=== PATIENT | male | born 1990 | race Caucasian/White ===

== ENCOUNTER 2019-01-08 19:05 | Emergency (ER) | payer OTHER, BC ==
--- NOTE | 2019-01-08 19:19 | ER Report ---
History and Physical Time Seen By MD: 19:19 Hx. of Stated Complaint: PT HIT STOOD UP AND HIT HEAD ON CABINET AT 1700 TODAY. NOT THINKING CLEARLY, HAS AN ABRASION ON TOP OF HEAD HPI/ROS CHIEF COMPLAINT: Head injury HISTORY OF PRESENT ILLNESS: This is a 28 year old male. he was at work, in the break room, stood up and hit head on corner of cabinet. Has been having dizziness. No headache. No loss of consciousness. Had nausea earlier, but is gone now. Has had prior concussion as a teenager. Is alert and oriented. Up to date on tetanus, last was in 2013 (5 years ago). Allergies: Coded Allergies: Sulfa (Sulfonamide Antibiotics) (Verified Allergy, Unknown, 01/08/19) Home Meds No Active Prescriptions or Reported Meds Reviewed Nurses Notes: Yes Hx Substance Use Disorder: No Hx Alcohol Use: Yes (RARE) Constitutional Vital Sign - Last 24 Hours 01/08/19 01/08/19 19:10 19:39 Temp 98.0 Pulse 70 Resp 20 B/P (MAP) 140/104 119/96 (104) Pulse Ox 98 O2 Delivery Room Air Physical Exam General Appearance: Alert, no acute distress. Eyes: Pupils equal and round no injection. Reactive to light, extraocular movements are intact. ENT: Normal oral mucosa. Moist mucous membranes. Neck: Neck is supple and non tender. Respiratory: Lungs are clear to auscultation. Cardiac: regular rate and rhythm Musculoskeletal: Extremities have full range of motion. Skin: Has abrasion left superior scalp. Neuro: Alert and oriented x4. Normal cranial nerves. No weakness or sensory deficits in extremities. DIFFERENTIAL DIAGNOSIS: After history and physical exam differential diagnosis was considered for concussion and scalp abrasion. Medical Decision Making ED Course/Re-evaluation ED Course Offered CT scan versus observation. The patient feels comfortable observing. Reviewed signs and symptoms of concussion, see instructions. Decision to Disposition Date: Jan 08, 2019 Decision to Disposition Time: 19:26 Depart Departure Latest Vital Signs Vital Signs Date Time Temp Pulse Resp B/P (MAP) Pulse Ox O2 Delivery O2 Flow Rate FiO2 01/08/19 19:39 119/96 (104) 01/08/19 19:10 98.0 70 20 98 Room Air Impression: Primary Impression: Concussion Condition: Improved Disposition: HOME OR SELF-CARE New Scripts No Active Prescriptions or Reported Meds Patient Instructions: Concussion (ED) Additional Instructions: Concussion symptoms include: headache, nausea/vomiting, dizziness, difficulty concentrating, blurred vision. These symptoms can be mild or moderate. If symptoms become severe, follow-up evaluation is needed. Avoid any heavy physical activity and avoid any activities that may cause repeat head injury. Concussion symptoms can last for days or weeks. There is no way to predict how long these will last. It is okay to sleep after a head injury. Just make sure someone is with you for the next 12 hours and that they check 2-3 hours to make sure you are still doing okay. Return to the ER for any altered mental status changes or confusion, or if one pupil is larger than the other, or if there are other abnormal or severe changes. Use Tylenol or ibuprofen as needed for pain. Do not use any medicines containing aspirin until symptoms resolve. Problem Qualifiers Primary Impression: Concussion Encounter type: initial encounter Loss of consciousness presence/duration: without LOC Qualified Codes: S06.0X0A - Concussion without loss of consciousness, initial encounter ALBIN REYNOLDS MD Jan 08, 2019 19:19
[2019-01-08 19:39] VITALS: BP 119/96
[2019-01-09] MEDS ORDERED: KET10 PO (17:29)
== END 2019-01-08 19:36 | disposition home or self-care (01) ==
LOC: ER 19:23
DX: S06.0X0A Concussion without loss of consciousness, initial encounter (principal); W22.8XXA Striking against or struck by other objects, initial encounter
CPT/HCPCS: 99281

== ENCOUNTER 2019-01-09 16:03 | Emergency (ER) | payer OTHER, BC ==
--- NOTE | 2019-01-09 16:11 | ER Report ---
History and Physical Time Seen By MD: 16:11 HPI/ROS CHIEF COMPLAINT: Headache, difficulty concentrating HISTORY OF PRESENT ILLNESS: 28-year-old male patient presents to emergency room with complaint of headache and difficulty concentrating. Patient was seen last night and diagnosed with concussion. Patient states that he had stood up at work and his head on a drawer. Patient denies any loss of consciousness. Patient states that today he is filling out paperwork for Workmen's Comp. and is having a difficult time staying focused on answering the questions. At that time his boss recommended that he come in and be evaluated for head injury. Patient states he had been nauseated without seemed to resolve. He states that he is having a persistent headache. Patient has been taking ibuprofen for this with no improvement. REVIEW OF SYSTEMS: Respiratory: No cough, no dyspnea. Cardiovascular: No chest pain, no palpitations. Gastrointestinal: No vomiting, no abdominal pain. Musculoskeletal: No back pain. Allergies: Coded Allergies: Sulfa (Sulfonamide Antibiotics) (Verified Allergy, Unknown, 01/09/19) Home Meds Active Scripts Ketorolac Tromethamine (KETOROLAC TROMETHAMINE) 10 Mg Tab, 10 MG PO Q6H, #20 TAB Prov:DEONTE HERNANDEZ RENAE 01/09/19 Past Medical/Surgical History Patient has a past medical history of coractation of the aorta, where alcohol use. Patient has a past surgical history of a stent placed in the aorta, gastric sleeve. Reviewed Nurses Notes: Yes Hx Substance Use Disorder: No Hx Alcohol Use: Yes (RARE) Constitutional Vital Sign - Last 24 Hours 01/09/19 01/09/19 01/09/19 01/09/19 16:03 16:08 16:10 16:33 Temp 97.6 Pulse 57 64 49 Resp 12 B/P (MAP) 121/91 (101) 121/91 Pulse Ox 95 O2 Delivery Room Air 01/09/19 01/09/19 01/09/19 17:00 17:03 17:08 Pulse 51 58 B/P (MAP) 99/71 (80) Pulse Ox 92 94 Physical Exam General Appearance: The patient is alert, has no immediate need for airway protection and no current signs of toxicity. Respiratory: Chest is non tender, lungs are clear to auscultation. Cardiac: regular rate and rhythm Gastrointestinal: Abdomen is soft and non tender, no masses, bowel sounds normal. Musculoskeletal: Neck: Neck is supple and non tender. Extremities have full range of motion and are non tender. Skin: No rashes or lesions. Neuro: Patient is alert and oriented 4, cranial nerves II through XII grossly intact. Patient was able to complete 3 word recall 3/3 at zero minutes and 2/3 at 5 minutes. DIFFERENTIAL DIAGNOSIS: After history and physical exam differential diagnosis was considered for head injury including but not limited to concussion, skull fracture, intraparenchymal contusion, subarachnoid, subdural and epidural hematoma. Medical Decision Making EKG/Imaging Imaging CT OF THE BRAIN WITHOUT CONTRAST HISTORY: Head injury PROCEDURE: 3.0 mm contiguous axial sections were performed through the brain. Sagittal and coronal reformats were submitted. COMPARISON: None FINDINGS: BRAIN: Brain and intracranial structures: There is no mass lesion, hemorrhage or acute infarct. Orbits (included portions): Normal. Scalp: Normal. Skull: Normal. Paranasal sinuses and mastoid air cells (included portions): Normal. IMPRESSION: No evidence of acute intracranial abnormality One of the following dose optimization techniques was utilized in the performance of this exam: Automated exposure control; adjustment of the mA and/or kV according to the patient's size; or use of an iterative reconst ruction technique. Specific details can be referenced in the facility's radiology CT exam operational policy. Report Dictated By: Farrah Fonseca MD at 01/09/2019 4:52 PM ED Course/Re-evaluation ED Course Patient was admitted to an exam room, history and physical were obtained. Differential diagnoses were considered. On examination lungs are clear, heart is regular, abdomen was soft nontender. Patient was alert and oriented 4, he struggled with 3 word recall after [address] scan of the head was done which was negative. I discussed the findings with the patient. I believe the patient is likely having symptoms related to his concussion a soy is having a difficult time concentrating. I did inform the patient that is to be expected. We will go ahead and put the patient on Toradol for the next 5 days. He is to get plenty of rest, limit his activity by pain. I did give the patient uses for work for work as well as school for the next couple days. Patient verbalized understanding of plan. He is to follow-up with his primary care provider in the next week. Decision to Disposition Date: Jan 09, 2019 Decision to Disposition Time: 17:12 Depart Departure Latest Vital Signs Vital Signs Date Time Temp Pulse Resp B/P (MAP) Pulse Ox O2 Delivery O2 Flow Rate FiO2 01/09/19 17:08 58 94 01/09/19 17:00 99/71 (80) 01/09/19 16:10 97.6 12 Room Air Impression: Primary Impression: Concussion Condition: Improved Disposition: HOME OR SELF-CARE New Scripts Ketorolac Tromethamine (KETOROLAC TROMETHAMINE) 10 Mg Tab 10 MG PO Q6H, #20 TAB Prov: DEONTE HERNANDEZ 01/09/19 Patient Instructions: Concussion (ED) Additional Instructions: Get plenty of rest. Limit activity by pain. Limit TV and computer time. Monitor for confusion, increased irritability, uncontrollable vomiting, worsening headache or difficulty to arouse. Return to the ER if those are to occur. Follow up with your primary care provider in the next week. Problem Qualifiers Primary Impression: Concussion Encounter type: initial encounter Loss of consciousness presence/duration: without LOC Qualified Codes: S06.0X0A - Concussion without loss of consciousness, initial encounter DEONTE HERNANDEZ Jan 09, 2019 16:11
[2019-01-09 17:00] VITALS: BP 99/71
--- NOTE | 2019-01-09 17:05 | RADIOLOGY IMAGING REPORT ---
FACILITY: [facility] PATIENT NAME: Duarte Valentine : 1990 MR: [id number] V: [id number] EXAM DATE: ORDERING PHYSICIAN: DEONTE HERNANDEZ TECHNOLOGIST: Location: [facility] [place] Patient: Duarte Valentine : 1990 Visit/Account:[id number] Date of Sevice: 01/09/2019 CT OF THE BRAIN WITHOUT CONTRAST HISTORY: Head injury PROCEDURE: 3.0 mm contiguous axial sections were performed through the brain. Sagittal and coronal r eformats were submitted. COMPARISON: None FINDINGS: BRAIN: Brain and intracranial structures: There is no mass lesion, hemorrhage or acute infarct. Orbits (included portions): Normal. Scalp: Normal. Skull: Normal. Paranasal sinuses and mastoid air cells (included portions): Normal. IMPRESSION: No evidence of acute intracranial abnormality One of the following dose optimization techniques was utilized in the performance of this exam: Autom ated exposure control; adjustment of the mA and/or kV according to the patient's size; or use of an i terative reconstruction technique. Specific details can be referenced in the facility's radiology C T exam operational policy. Report Dictated By: Farrah Fonseca MD at 01/09/2019 4:52 PM Report E-Signed By: Farrah Fonseca MD at 01/09/2019 5:02 PM [id number]
[2019-01-09] MEDS ORDERED: KET10 PO (17:29)
== END 2019-01-09 17:35 | disposition home or self-care (01) ==
LOC: ER 16:09
DX: S06.0X0A Concussion without loss of consciousness, initial encounter (principal); W22.8XXA Striking against or struck by other objects, initial encounter
CPT/HCPCS: 70450; 99284